=== PATIENT | female | born 1955 | race Two or more races ===

== ENCOUNTER 2016-06-30 12:44 | Emergency (ER) | payer BC, MEDICARE, OTHER ==
[~2016-06-30] VITALS: Ht 170.2 cm; Wt 77.1 kg
[~2016-06-30 12:44] MED LIST: ASPI-605 PO; CARI350T PO; FENO54TA PO; FLAX100032 PO; HYDR-3326 PO; LEVO25TA9 PO; LORA1TAB PO; OMEG500C3 PO; SIMV40TA5 PO
[2016-06-30 13:00] VITALS: BP 127/80
--- NOTE | 2016-06-30 13:56 | NUR ---
DR SANTANA AT BEDSIDE FOR EVAL.
[2016-06-30] MEDS ORDERED: DEXAMETHASONE SOD PHOSPHATE 10 MG/ML VIAL ONE (14:20)
[2016-06-30] MEDS ORDERED: DEXAMETHASONE SOD PHOSPHATE 10 MG/ML VIAL IM ONE (14:30)
== END 2016-06-30 14:32 | disposition home or self-care (01) ==
LOC: ER 12:51
DX: T78.40XA Allergy, unspecified, initial encounter (principal); E78.00 Pure hypercholesterolemia, unspecified; E03.9 Hypothyroidism, unspecified; Z93.50 Unspecified cystostomy status; Z79.82 Long term (current) use of aspirin
CPT/HCPCS: A4606; J1100; Z7610

== ENCOUNTER 2016-07-11 10:15 | Outpatient (CLI) | payer BC, MEDICARE, OTHER ==
[2016-07-11 10:59] LABS: APPEARANCE,URINE CLEAR (CLEAR); BASOPHILS % (AUTO) 0.5 % (0.0-2.0); BILIRUBIN,URINE NEGATIVE (NEGATIVE); BLOOD, URINE TRACE-INTA Ery/uL (NEGATIVE); COLOR,URINE YELLOW (YELLOW); EOSINOPHILS # (AUTO) 0.2 /CMM (0.0-0.7); EOSINOPHILS % (AUTO) 2.4 % (0.0-6.0); HEMATOCRIT 42 % (33-45); HEMOGLOBIN 14.4 g/dL (11.5-14.8); KETONES,URINE NEGATIVE (NEGATIVE); LEUKOCYTE ESTERASE ,URINE NEGATIVE (NEGATIVE); LYMPHOCYTES # (AUTO) 2.4 /CMM (0.8-4.8); LYMPHOCYTES % (AUTO) 37.2 % (20.0-44.0); MEAN CORPUSCULAR HEMOGLOBIN 29 PG (26.0-33.0); MEAN CORPUSCULAR HGB CONC 34 g/dl (31.0-36.0); MEAN CORPUSCULAR VOLUME 86 fL (82-100); MONOCYTES # (AUTO) 0.4 /CMM (0.1-1.30); MONOCYTES % (AUTO) 6.1 % (2.0-12.0); NEUTROPHILS # (AUTO) 3.5 /CMM (1.8-8.9); NEUTROPHILS % (AUTO) 53.8 % (43.0-81.0); NITRITE, URINE NEGATIVE (NEGATIVE); PLATELET COUNT (AUTO) 240 /CMM (150-450); PROTEIN,URINE NEGATIVE (NEGATIVE); RDW COEFFICIENT OF VARIATION 12.8 (11.5-15.0); UGLUCOSE NEGATIVE (NEGATIVE); UROBILINOGEN,URINE 0.2 EU/dL (0.2); WHITE BLOOD COUNT (AUTO) 6.5 K/uL (4.3-11.0)
[2016-07-11 11:09] LABS: ADD URINE CULTURE NO; BACTERIA,URINE None seen /HPF (None Seen); MUCUS,URINE Few /LPF (None Seen); SQUAMOUS EPITHELIAL CELL,UR Few /HPF (None Seen); WBC,URINE 0-2 /HPF (0-3)
[2016-07-11 11:17] LABS: ALBUMIN 4.5 g/dL (3.4-5.0); BILIRUBIN,TOTAL 0.5 mg/dL (0.2-1.0); CALCIUM, SERUM 9.3 mg/dL (8.5-10.1); CREATININE 0.8 mg/dL (0.6-1.3)
[2016-07-11 11:30] LABS: THYROID STIMULATING HORMONE 2.398 uIU/mL (0.358-3.74); URIC ACID 3.6 mg/dL (2.6-7.2)
[2016-07-12 08:03] LABS: CHOLESTEROL 192 mg/dL (<200); HDL CHOLESTEROL 37 mg/dL (40-60); LDL 112 mg/dL (0-99); TRIGLYCERIDES 231 mg/dL (30-150)
== END 2016-07-11 23:59 | disposition home or self-care (01) ==
LOC: LAB 10:15
PROVIDERS: ATTEND Legal Medicine
DX: Z00.00 Encounter for general adult medical examination without abnormal findings (principal)
CPT/HCPCS: 36415; 80053-TC; 80061-TC; 81000-TC; 82306; 82728-TC; 82746; 83540-TC; 84439-TC; 84443-TC; 84550-TC; 85025-TC

== ENCOUNTER 2016-08-23 23:49 | Emergency (ER) | payer BC, MEDICARE, OTHER ==
[~2016-08-23] VITALS: Ht 170.2 cm; Wt 79.4 kg
--- NOTE | 2016-08-24 00:04 | NUR ---
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 AOX4 resp even & unlabored, denies any sob, no throat tightening w/ nad noted. СВЕТЛАНА Nino at bedside for further eval.
[2016-08-24] MEDS ORDERED: DEXAMETHASONE SOD PHOSPHATE 10 MG/ML VIAL ONE (00:14)
--- NOTE | 2016-08-24 00:26 | NUR ---
medicated as ordered.
[2016-08-24] MEDS ORDERED: DEXAMETHASONE SOD PHOSPHATE 4 MG/ML VIAL IM ONE (00:30)
--- NOTE | 2016-08-24 00:52 | NUR ---
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 Prescription for benadryl provided, instructed not to drive while on medication. Patient discharged to home in stable condition. Written and verbal after care instructions given. Patient verbalizes understanding of instruction.
[2016-08-24 00:57] VITALS: BP 134/72
== END 2016-08-24 00:57 | disposition home or self-care (01) ==
LOC: ER 23:54
DX: T78.40XA Allergy, unspecified, initial encounter (principal); E78.00 Pure hypercholesterolemia, unspecified; E03.9 Hypothyroidism, unspecified; M54.9 Dorsalgia, unspecified; G89.29 Other chronic pain; Z93.50 Unspecified cystostomy status; Z79.82 Long term (current) use of aspirin
CPT/HCPCS: 96372; 99283; A4606; J1100; Z7610

== ENCOUNTER 2017-02-03 07:57 | Emergency (ER) | payer BC, MEDICARE ==
[~2017-02-03] VITALS: Ht 170.2 cm; Wt 78.0 kg
--- NOTE | 2017-02-03 08:00 | NUR ---
PATIENT PRESENTS TO ER C/O LEFT EYE REDNESS AND PAIN SINCE YESTERDAY. PATIENT IS A/OX 4. BREATHING EVEN AND UNLABORED. NO SOB. VITALS STABLE. NO DISCHARGE FROM EYE NOTED. SAFETY AND COMFORT MEASURES IN PLACE. AWAITING MD ORDERS.
[2017-02-03] MEDS ORDERED: FLUORESCEIN SODIUM OPHTH 1 EA STRIP ONE (08:10)
[2017-02-03] MEDS ORDERED: TETRACAINE HCL/PF 0.5% UD 2 ML BOTTLE ONE (08:11)
--- NOTE | 2017-02-03 08:15 | NUR ---
VISUAL ASSESSMENT COMPLETED, 20/70 LEFT EYE.
[2017-02-03 08:37] VITALS: BP 124/72
--- NOTE | 2017-02-03 08:38 | NUR ---
Patient discharged to home in stable condition. Written and verbal after care instructions given. Patient verbalizes understanding of instruction.
[2017-02-03] MEDS ORDERED: TETRACAINE HCL/PF 0.5% UD 2 ML BOTTLE OP ONE (09:00)
[2017-02-03] MEDS ORDERED: FLUORESCEIN SODIUM OPHTH 1 EA STRIP OP ONE (09:00)
== END 2017-02-03 08:38 | disposition home or self-care (01) ==
LOC: ER 08:00
DX: H57.8 Other specified disorders of eye and adnexa (principal); E78.00 Pure hypercholesterolemia, unspecified; E03.9 Hypothyroidism, unspecified; Z79.82 Long term (current) use of aspirin
CPT/HCPCS: A4606; Z7610

== ENCOUNTER 2017-03-20 07:59 | Outpatient (CLI) | payer BC, MEDICARE ==
[2017-03-20 09:20] LABS: BASOPHILS % (AUTO) 0.4 % (0.0-2.0); EOSINOPHILS # (AUTO) 0.2 /CMM (0.0-0.7); EOSINOPHILS % (AUTO) 2.6 % (0.0-6.0); HEMATOCRIT 38 % (33-45); HEMOGLOBIN 13.1 g/dL (11.5-14.8); LYMPHOCYTES # (AUTO) 2.9 /CMM (0.8-4.8); LYMPHOCYTES % (AUTO) 42.3 % (20.0-44.0); MEAN CORPUSCULAR HEMOGLOBIN 30 PG (26.0-33.0); MEAN CORPUSCULAR HGB CONC 35 g/dl (31.0-36.0); MEAN CORPUSCULAR VOLUME 86 fL (82-100); MONOCYTES # (AUTO) 0.5 /CMM (0.1-1.30); MONOCYTES % (AUTO) 6.7 % (2.0-12.0); NEUTROPHILS # (AUTO) 3.3 /CMM (1.8-8.9); PLATELET COUNT (AUTO) 266 /CMM (150-450); RDW COEFFICIENT OF VARIATION 12.7 (11.5-15.0); RED BLOOD CELL COUNT(AUTO) 4.39 MIL/uL (4.0-5.2); WHITE BLOOD COUNT (AUTO) 6.8 K/uL (4.3-11.0)
[2017-03-20 09:22] LABS: APPEARANCE,URINE CLEAR (CLEAR); BILIRUBIN,URINE NEGATIVE (NEGATIVE); BLOOD, URINE NEGATIVE Ery/uL (NEGATIVE); COLOR,URINE YELLOW (YELLOW); KETONES,URINE NEGATIVE (NEGATIVE); LEUKOCYTE ESTERASE ,URINE NEGATIVE (NEGATIVE); NITRITE, URINE NEGATIVE (NEGATIVE); PROTEIN,URINE NEGATIVE (NEGATIVE); UGLUCOSE NEGATIVE (NEGATIVE); UROBILINOGEN,URINE 0.2 EU/dL (0.2)
[2017-03-20 09:35] LABS: ALBUMIN 4.4 g/dL (3.4-5.0); BILIRUBIN,TOTAL 0.4 mg/dL (0.2-1.0); CALCIUM, SERUM 9.5 mg/dL (8.5-10.1); CREATININE 0.7 mg/dL (0.6-1.3); POTASSIUM 4.1 mmol/L (3.5-5.1)
[2017-03-20 09:47] LABS: THYROID STIMULATING HORMONE 2.754 uIU/mL (0.358-3.74); URIC ACID 2.9 mg/dL (2.6-7.2)
== END 2017-03-20 23:59 | disposition home or self-care (01) ==
LOC: LAB 07:59
PROVIDERS: ATTEND Legal Medicine
DX: Z00.01 Encounter for general adult medical examination with abnormal findings (principal); R79.89 Other specified abnormal findings of blood chemistry; E78.00 Pure hypercholesterolemia, unspecified; E55.9 Vitamin D deficiency, unspecified
CPT/HCPCS: 36415; 80053-TC; 80061-TC; 81000-TC; 82306; 82746; 83540-TC; 84439-TC; 84443-TC; 84550-TC; 85025-TC; 87086-TC

== ENCOUNTER 2017-06-06 19:05 | Inpatient (IN) | payer BC, MEDICARE ==
[~2017-06-06] VITALS: Ht 170.2 cm; Wt 78.0 kg
[~2017-06-06 19:05] MED LIST changes: -HYDR-3326 PO; +HYDR-3974 PO
[2017-06-06] MEDS ORDERED: ONDANSETRON 4 MG TAB.RAPDIS SL ONE (19:30)
[2017-06-06] MEDS ORDERED: KETOROLAC TROMETHAMINE INJ 30 MG/ML VIAL IM ONE (19:30)
[2017-06-06] MEDS ORDERED: oxyCODONE/APAP (5/325 MG) 1 UDTAB TABLET PO ONE (19:30)
[2017-06-06] MEDS ORDERED: oxyCODONE/APAP (5/325 MG) 1 UDTAB TABLET ONE (19:57)
[2017-06-06] MEDS ORDERED: KETOROLAC TROMETHAMINE INJ 30 MG/ML VIAL ONE (19:57)
[2017-06-06] MEDS ORDERED: ONDANSETRON 4 MG TAB.RAPDIS ONE (19:58)
--- NOTE | 2017-06-06 20:00 | NUR ---
PT A/OX4 BREATHING EFFORTLESSLY ON ROOM AIR, PT BIB FAMILY FROM HOME, PT STATES SHE HAS DISC PROBLEMS IN HER BACK AND SHE THINKS SHE IS HAVING A FLARE UP IN HER BACK PAIN TODAY, PT AMBULATORY WITH ASSISTANCE, PT ON MONITOR, FAMILY AT BEDSIDE WILL CONTINUE TO MONITOR.
--- NOTE | 2017-06-06 21:04 | NUR ---
CALLED NURSING PARTS PROCESSOR AND REQUESTED A MED SURG BED FOR THIS PT.
[2017-06-06 21:05] LABS: APPEARANCE,URINE Clear (CLEAR); BILIRUBIN,URINE Negative (NEGATIVE); BLOOD, URINE Trace-lysed Ery/uL (NEGATIVE); COLOR,URINE Yellow (YELLOW); KETONES,URINE Negative (NEGATIVE); LEUKOCYTE ESTERASE ,URINE Negative (NEGATIVE); NITRITE, URINE Negative (NEGATIVE); PROTEIN,URINE Negative (NEGATIVE); UGLUCOSE Negative (NEGATIVE); UROBILINOGEN,URINE 0.2 EU/dL (0.2)
[2017-06-06 21:14] LABS: BASOPHILS # (AUTO) 0.1 /CMM (0.0-0.2); BASOPHILS % (AUTO) 0.8 % (0.0-2.0); EOSINOPHILS % (AUTO) 2.7 % (0.0-6.0); HEMATOCRIT 39 % (33-45); HEMOGLOBIN 13.6 g/dL (11.5-14.8); LYMPHOCYTES # (AUTO) 3.5 /CMM (0.8-4.8); MEAN CORPUSCULAR HGB CONC 35 g/dl (31.0-36.0); MEAN CORPUSCULAR VOLUME 85 fL (82-100); MONOCYTES # (AUTO) 0.5 /CMM (0.1-1.30); MONOCYTES % (AUTO) 6.3 % (2.0-12.0); NEUTROPHILS # (AUTO) 3.8 /CMM (1.8-8.9); NEUTROPHILS % (AUTO) 47.2 % (43.0-81.0); PLATELET COUNT (AUTO) 235 /CMM (150-450); RDW COEFFICIENT OF VARIATION 12.2 (11.5-15.0); RED BLOOD CELL COUNT(AUTO) 4.55 MIL/uL (4.0-5.2); WHITE BLOOD COUNT (AUTO) 8.1 K/uL (4.3-11.0)
--- NOTE | 2017-06-06 21:15 | NUR ---
CALLED DR ECHEVARRIA'S OFFICE AND A CALL BACK MESSAGE WAS LEFT.
[2017-06-06 21:21] LABS: BACTERIA,URINE Few /HPF (None Seen); RBC,URINE 2-3/HPF /HPF (0-2); SQUAMOUS EPITHELIAL CELL,UR Few /HPF (None Seen); URINE AMORPHOUS URATE Few /HPF (None Seen)
[2017-06-06 21:24] LABS: CALCIUM, SERUM 9.4 mg/dL (8.5-10.1); CREATININE 0.7 mg/dL (0.6-1.3); POTASSIUM 4.1 mmol/L (3.5-5.1)
--- NOTE | 2017-06-06 21:26 | NUR ---
PT IS ASSIGNED TO MED SURG RM#:[id number], PT IS DIAGNOSED WITH INTRACTABLE BACK PAIN, AND DR ECHEVARRIA IS THE ACCEPTING MD.
[2017-06-06 21:30] LABS: ALBUMIN 4.4 g/dL (3.4-5.0); BILIRUBIN,TOTAL 0.3 mg/dL (0.2-1.0); TOTAL PROTEIN, SERUM 7.9 g/dL (6.4-8.2)
[2017-06-06] MEDS ORDERED: FENTANYL PF 100MCG/2ML AMPUL ONE (21:59)
[2017-06-06] MEDS ORDERED: FENTANYL PF 100MCG/2ML AMPUL IV ONE (22:00)
[2017-06-06 22:15] VITALS: BP 122/76
--- NOTE | 2017-06-06 22:15 | NUR ---
MS RN NOTES RECEIVED PT FROM ER, TRANSFERRED TO BED SAFELY. DILLAN FROM IT AT BEDSIDE. PT IN STABLE CONDITION. PT IS A/O X 4. VERBALLY RESPONSIVE. NO DISTRESS, NO SOB NOTED AT THIS TIME. IV SITE ON RAC G # 20 INTACT AND PATENT, NO S/S OF INFILTRATION NOTED. FULL BODY CHECK DONE. PT PAIN LEVEL 3/10 AT THIS TIME, OFFERED PAIN MEDICINE BUT PT DOESN'T WANT IT AT THIS TIME. ALL NEEDS ATTENDED ANE MET. KEPT COMFORTABLE. SAFETY PRECAUTIONS OBSERVED. CALL LIGHT WITHIN REACH. WILL CONT TO MONITOR.
[2017-06-06] MEDS ORDERED: MORPHINE SULFATE INJ 2 MG/ML DISP.SYRIN IV PRN (22:30)
[2017-06-06] MEDS ORDERED: MORPHINE SULFATE INJ 4 MG/ML DISP.SYRIN IV PRN (22:30)
[2017-06-06] MEDS ORDERED: ONDANSETRON HCL/PF 4 MG/2 ML VIAL IV PRN (22:30)
[2017-06-06] MEDS ORDERED: CYCLOBENZAPRINE 10 MG TABLET PO PRN (22:30)
--- NOTE | 2017-06-07 06:27 | NUR ---
MS RN NOTES PT IN BED, RESTING COMFORTABLY AT THSI TIME, AROUSES EASILY. PT IS A/O X 4. VERBALLY RESPONSIVE. NO DISTRESS, NO SOB NOTED AT THIS TIME. NO C/O PAIN OR DISCOMFORT AT THIS TIME. IV SITE ON RAC G # 20 INTACT AND PATENT, NO S/S OF INFILTRATION NOTED. ALL NEEDS ATTENDED AND MET. KEPT COMFORTABLE. PT IS AMBULATORY. SAFETY PRECAUTIONS OBSERVED. CALL LIGHT WITHIN REACH. WILL ENDORSE TO NEXT SHIFT FOR JESSICA.
[2017-06-07 08:00] VITALS: BP 111/61
--- NOTE | 2017-06-07 08:00 | NUR ---
MS RN RECEIVED ON BED, AWAKE,ALERT,ORIENTED X4,PATIENT CAME W/ LOWER BACK PAIN, COMPLAINING OF PAIN A THIS TIME, EVERYTIME SHE OVE, WILL MONITOR PATIENT.
--- NOTE | 2017-06-07 09:00 | NUR ---
MS STOCK BREAKFAST SERVED,DUE MEDS GIVEN,TOLERATED WELL.
[2017-06-07] MEDS: PANTOPRAZOLE 40 MG TABLET.DR PO SCH (09:12)
[2017-06-07] MEDS ORDERED: FENTANYL PF 100MCG/2ML AMPUL IV PRN ×2 (09:30)
[2017-06-07] MEDS ORDERED: LORAZEPAM INJ 2 MG/ML VIAL IV ONE (10:00)
--- NOTE | 2017-06-07 10:00 | NUR ---
MS RN WAS SEEN BY DR. ECHEVARRIA W/ ORDERS MADE AND CARRIED OUT.
[2017-06-07] MEDS ORDERED: HYDROCODONE/APAP 5/325MG 1 EACH TABLET PO PRN (10:30)
--- NOTE | 2017-06-07 11:33 | NUR ---
MS RN WENT DOWN FOR MRI.
--- NOTE | 2017-06-07 12:20 | NUR ---
MS RN PATIENT CAME BACK, STILL SLEEPING, NO DISTRESS NOTED. WILL MONITOR PATIENT.
[2017-06-07 16:13] VITALS: BP 99/58
--- NOTE | 2017-06-07 17:58 | NUR ---
MS RN ON BED,NO CHANGE OF CONDITION, WILL MONITOR PATIENT'S CONDITION.
[2017-06-07] MEDS ORDERED: ASPIRIN EC 81 MG TABLET.DR PO SCH (18:00)
--- NOTE | 2017-06-07 18:36 | NUR ---
MS RN LEFT MESSAGE TO FOR LIDOCAINE PATCH ORDER AND PATIENT WANTS TO KNOW IF HE CAN COME HERE FOR MRI RESULT.
--- NOTE | 2017-06-07 19:30 | NUR ---
MS RN OPENING NOTES: PATIENT IN BED, AOX4, ON ROOM AIR, BREATHING EVEN AND UNLABORED. APPEARS CALM, TALKING WITH FAMILY IN ROOM, HOWEVER, SHE COMPLAINS OF 7-8/10 PAIN OVER HER LOWER BACK AREA WHENEVER SHE MOVES. PIV OVER RAC G 20 INTACT AND PATENT TO FLUSH. PROVIDED FOR COMFORT AND SAFETY. BED IN LOWEST AND LOCKED POSITION, SIDERAILS UP X3, CALL LIGHT WITHIN REACH. WILL CONT TO MONITOR.
[2017-06-07 20:00] VITALS: BP 98/65
[2017-06-07] MEDS: CARISOPRODOL 350 MG TABLET PO PRN (20:54)
--- NOTE | 2017-06-07 21:00 | NUR ---
RN NOTES: PATIENT COMPLAINING OF 7-8/10 LOWER BACK PAIN WITH STIFFNESS, WORSE WHEN MOVING. ADMINISTERED SOMA 350 MG PO. APPLIED WARM PACK OVER LOWER BACK WELL. WILL CONT TO MONITOR.
--- NOTE | 2017-06-07 22:02 | NUR ---
RN NOTES: PATIENT STILL WITH LOWER BACK PAIN, AND IS ASKING FOR LIDOCAINE PATCH. PAGED DR ECHEAVRRIA, AWAITING CALL BACK.
--- NOTE | 2017-06-08 03:30 | NUR ---
RN NOTES: PATIENT AWOKE WHEN ROUNDS WERE BEING DONE, PATIENT STATES THAT THE SOMA 350 MG PO SIGNIFICANTLY HELPED HER LOW BACK PAIN AND ALLOWED HER TO SLEEP. ASKED IF SHE IS HAVING ANY PAIN AND OFFERED PAIN MEDS, DENIES MODERATE TO SEVERE PAIN NOW. PATIENT WENT BACK TO SLEEP.
--- NOTE | 2017-06-08 07:09 | NUR ---
MS RN CLOSING NOTES: PATIENT IN BED, AOX4, ON ROOM AIR, BREATHING EVEN AND UNLABORED. PATIENT STILL COMPLAINING OF MODERATE LOWER BACK PAIN, BUT CLAIMED THAT PRN SOMA WAS ABLE TO PROVIDE SOME PAIN RELIEF. PIV OVER RAC G 20 INTACT AND PATENT TO FLUSH. PROVIDED FOR COMFORT AND SAFETY. BED IN LOWEST AND LOCKED POSITION, SIDERAILS UP X 3, CALL LIGHT WITHIN REACH. WILL ENDORSE TO AM RN FOR JESSICA.
[2017-06-08] MEDS: PANTOPRAZOLE 40 MG TABLET.DR PO SCH (07:17)
[2017-06-08] MEDS ORDERED: LEVOTHYROXINE SODIUM 25 MCG TABLET PO SCH (07:30)
[2017-06-08 08:00] VITALS: BP 104/66
--- NOTE | 2017-06-08 08:00 | NUR ---
MS RN OPENING NOTES: PATIENT IN BED, AOX4, ON ROOM AIR, BREATHING EVEN AND UNLABORED. APPEARS CALM, TALKING WITH FAMILY IN ROOM, HOWEVER, SHE COMPLAINS OF 6/10 PAIN OVER HER LOWER BACK AREA WHENEVER SHE MOVES.SOMA GIVEN. PIV OVER RAC G 20 INTACT AND PATENT TO FLUSH. PROVIDED FOR COMFORT AND SAFETY. BED IN LOWEST AND LOCKED POSITION, SIDERAILS UP X3, CALL LIGHT WITHIN REACH. WILL CONT TO MONITOR.
[2017-06-08] MEDS: CARISOPRODOL 350 MG TABLET PO PRN (08:24)
[2017-06-08] MEDS ORDERED: Medication Not On Formulary EA (Omega-3 Fatty Acids (Fish Oil) 500 MG) PO SCH (09:00)
[2017-06-08] MEDS ORDERED: SIMVASTATIN 40 MG TABLET PO SCH (09:00)
[2017-06-08] MEDS ORDERED: SENNOSIDES 8.6 MG TABLET PO PRN (09:00)
--- NOTE | 2017-06-08 12:50 | NUR ---
SEEN BY DR ELLIOTT FOR PAIN MGT AND PRESCRIPTION.INSTRUCTED TO GO TO [facility] FOR P.T. [place].FOLLOW UP WITH DR ELLIOTT IN 3 WEEKS.
--- NOTE | 2017-06-08 15:24 | NUR ---
DISCHARGE INSTRUCTIONS,MED RECONCILIATION,PRESCRIPTIONS,MED AND HEALTH TEACHING GIVEN TO THE PT.IV H/L REMOVED TO RT AC WITHOUT BLEEDING NOTED.AWAITING FOR TO PICK HER UP.PT DENIES ANY PAIN OR DISTRESS.
[2017-06-08 16:00] VITALS: BP 147/73
--- NOTE | 2017-06-08 17:09 | NUR ---
DISCHARGED HOME WITH STABLE V/S DENYING ANY PAIN OR DISTRESS ACCOMPANIED BY HER ,DILLAN.
[2017-06-09] MEDS ORDERED: Fenofibrate 48 MG TABLET PO SCH (09:00)
== END 2017-06-08 16:41 | disposition home or self-care (01) | DRG 552 ==
LOC: ER 19:06 → MED 21:34
PROVIDERS: ADMIT Legal Medicine; ATTEND Legal Medicine
DX: M51.16 Intervertebral disc disorders with radiculopathy, lumbar region (principal); E03.9 Hypothyroidism, unspecified; M47.26 Other spondylosis with radiculopathy, lumbar region; E78.00 Pure hypercholesterolemia, unspecified; K21.9 Gastro-esophageal reflux disease without esophagitis; F41.9 Anxiety disorder, unspecified; M51.26 Other intervertebral disc displacement, lumbar region; Z79.82 Long term (current) use of aspirin; Z79.899 Other long term (current) drug therapy; M53.3 Sacrococcygeal disorders, not elsewhere classified; G89.4 Chronic pain syndrome; M12.9 Arthropathy, unspecified
CPT/HCPCS: 36415; 71045-TC; 72148-TC; 80053-TC; 81000-TC; 85025-TC; 87081-TC; A4606; J1885; J2060; J3010; Q0162; Z7610

== ENCOUNTER 2017-06-26 14:49 | Outpatient (CLI) | payer BC, MEDICARE ==
[~2017-06-26 14:49] MED LIST changes: -HYDR-3974 PO; -LORA1TAB PO
== END 2017-06-26 23:59 | disposition home or self-care (01) ==
LOC: MSC 14:49
PROVIDERS: ATTEND Anesthesiology
DX: M51.36 Other intervertebral disc degeneration, lumbar region (principal); M47.817 Spondylosis without myelopathy or radiculopathy, lumbosacral region; M25.9 Joint disorder, unspecified

== ENCOUNTER 2017-07-31 10:54 | Outpatient (CLI) | payer BC, MEDICARE | END 2017-07-31 23:59 | disposition home or self-care (01) | LOC: RAD 10:54 | PROVIDERS: ATTEND Anesthesiology | DX: M17.0 Bilateral primary osteoarthritis of knee (principal) | CPT/HCPCS: 73560-TC ==

== ENCOUNTER 2017-07-31 11:00 | Outpatient (CLI) | payer BC, MEDICARE | END 2017-07-31 23:59 | disposition home or self-care (01) | LOC: MSC 11:00 | PROVIDERS: ATTEND Anesthesiology | DX: M51.36 Other intervertebral disc degeneration, lumbar region (principal); M47.817 Spondylosis without myelopathy or radiculopathy, lumbosacral region; M25.9 Joint disorder, unspecified; M25.561 Pain in right knee; M25.562 Pain in left knee ==

== ENCOUNTER 2017-10-02 08:24 | Emergency (ER) | payer BC, MEDICARE ==
[~2017-10-02] VITALS: Ht 167.6 cm; Wt 68.0 kg
[2017-10-02 08:38] VITALS: BP 105/87
[2017-10-02] MEDS ORDERED: KETOROLAC TROMETHAMINE INJ 60 MG/2 ML VIAL IM ONE ×2 (09:00→09:30)
== END 2017-10-02 10:30 | disposition home or self-care (01) ==
LOC: ER 08:26
DX: M17.11 Unilateral primary osteoarthritis, right knee (principal); G89.29 Other chronic pain; M54.9 Dorsalgia, unspecified; F41.9 Anxiety disorder, unspecified; E78.00 Pure hypercholesterolemia, unspecified; E03.9 Hypothyroidism, unspecified; Z91.012 Allergy to eggs; Z91.010 Allergy to peanuts; Z88.8 Allergy status to other drugs, medicaments and biological substances; Z79.82 Long term (current) use of aspirin
CPT/HCPCS: 29505; 96372; 99283; A4606; J1885; Z7610

== ENCOUNTER 2017-10-10 07:56 | Outpatient (CLI) | payer BC, MEDICARE ==
[~2017-10-10 07:56] MED LIST changes: +KETOROLAC TROMETHAMINE INJ 30 MG/ML VIAL ONE
== END 2017-10-10 23:59 | disposition home or self-care (01) ==
LOC: MRI 07:56
PROVIDERS: ATTEND Anesthesiology
DX: S83.242A Other tear of medial meniscus, current injury, left knee, initial encounter (principal); M17.0 Bilateral primary osteoarthritis of knee; M25.461 Effusion, right knee; M71.21 Synovial cyst of popliteal space [Baker], right knee; X58.XXXA Exposure to other specified factors, initial encounter; Y93.89 Activity, other specified; Y92.89 Other specified places as the place of occurrence of the external cause; Y99.8 Other external cause status
CPT/HCPCS: 73721 ×2; J1885

== ENCOUNTER 2017-10-11 00:07 | Emergency (ER) | payer MEDICARE, BC ==
[~2017-10-11] VITALS: Ht 170.2 cm; Wt 80.7 kg
[~2017-10-11 00:07] MED LIST changes: -KETOROLAC TROMETHAMINE INJ 30 MG/ML VIAL ONE
[2017-10-11 00:46] VITALS: BP 121/71
[2017-10-11] MEDS ORDERED: DEXAMETHASONE SOD PHOSPHATE 10 MG/ML VIAL ONE (01:10)
[2017-10-11] MEDS ORDERED: HYDROMORPHONE INJ 2 MG/ML DISP.SYRIN ONE (01:10)
[2017-10-11] MEDS ORDERED: DEXAMETHASONE SOD PHOSPHATE 4 MG/ML VIAL IM ONE (01:30)
[2017-10-11] MEDS ORDERED: HYDROMORPHONE 1 MG/1 ML DISP.SYRIN IM ONE (01:30)
== END 2017-10-11 01:18 | disposition home or self-care (01) ==
LOC: ER 00:09
DX: M25.561 Pain in right knee (principal); G89.4 Chronic pain syndrome; F41.9 Anxiety disorder, unspecified; E78.00 Pure hypercholesterolemia, unspecified; E03.9 Hypothyroidism, unspecified; Z91.012 Allergy to eggs; Z91.010 Allergy to peanuts; Z88.2 Allergy status to sulfonamides; Z79.82 Long term (current) use of aspirin
CPT/HCPCS: 96372 ×2; 99284; A4606; J1100; J1170; Z7610

== ENCOUNTER 2017-11-20 07:50 | Outpatient (CLI) | payer MEDICARE, BC ==
[2017-11-20 09:47] LABS: APPEARANCE,URINE SL CLOUDY (CLEAR); BILIRUBIN,URINE NEGATIVE (NEGATIVE); BLOOD, URINE TRACE-INTA Ery/uL (NEGATIVE); COLOR,URINE YELLOW (YELLOW); KETONES,URINE NEGATIVE (NEGATIVE); LEUKOCYTE ESTERASE ,URINE NEGATIVE (NEGATIVE); NITRITE, URINE NEGATIVE (NEGATIVE); PROTEIN,URINE NEGATIVE (NEGATIVE); UGLUCOSE NEGATIVE (NEGATIVE); UROBILINOGEN,URINE 0.2 EU/dL (0.2)
[2017-11-20 10:00] LABS: BASOPHILS % (AUTO) 0.1 % (0.0-2.0); BILIRUBIN,TOTAL 0.6 mg/dL (0.2-1.0); CALCIUM, SERUM 8.9 mg/dL (8.5-10.1); CREATININE 0.7 mg/dL (0.6-1.3); EOSINOPHILS % (AUTO) 3.4 % (0.0-6.0); HEMATOCRIT 40 % (33-45); HEMOGLOBIN 13.7 g/dL (11.5-14.8); LYMPHOCYTES # (AUTO) 2.2 /CMM (0.8-4.8); LYMPHOCYTES % (AUTO) 41.3 % (20.0-44.0); MEAN CORPUSCULAR HGB CONC 34 g/dl (31.0-36.0); MEAN CORPUSCULAR VOLUME 87 fL (82-100); MONOCYTES # (AUTO) 0.3 /CMM (0.1-1.30); MONOCYTES % (AUTO) 6.3 % (2.0-12.0); NEUTROPHILS # (AUTO) 2.7 /CMM (1.8-8.9); NEUTROPHILS % (AUTO) 48.9 % (43.0-81.0); PLATELET COUNT (AUTO) 243 /CMM (150-450); POTASSIUM 3.8 mmol/L (3.5-5.1); RDW COEFFICIENT OF VARIATION 12.4 (11.5-15.0); RED BLOOD CELL COUNT(AUTO) 4.65 MIL/uL (4.0-5.2); TOTAL PROTEIN, SERUM 7.5 g/dL (6.4-8.2); WHITE BLOOD COUNT (AUTO) 5.4 K/uL (4.3-11.0)
[2017-11-20 10:14] LABS: C-REACTIVE PROTEIN 0.4 mg/dL (0.0-0.9); THYROID STIMULATING HORMONE 2.747 uIU/mL (0.358-3.74)
[2017-11-20 10:30] LABS: BACTERIA,URINE Moderate /HPF (None Seen); RBC,URINE 0-2 /HPF (0-2); SQUAMOUS EPITHELIAL CELL,UR Moderate /HPF (None Seen); WBC,URINE 0-2 /HPF (0-3)
[2017-11-21 08:08] LABS: T3, FREE 3.2 pg/mL (2.0-4.4)
[2017-11-22 11:10] LABS: CALCITRIOL VIT D,1, 25 DIHYDRO 74.3 pg/mL (19.9-79.3)
[2017-11-22 20:09] LABS: CCP IgG/IgA AB 10 units (0-19)
== END 2017-11-20 23:59 | disposition home or self-care (01) ==
LOC: LAB 07:50
PROVIDERS: ATTEND Legal Medicine
DX: Z00.01 Encounter for general adult medical examination with abnormal findings (principal); F41.9 Anxiety disorder, unspecified; E03.9 Hypothyroidism, unspecified; M19.90 Unspecified osteoarthritis, unspecified site
CPT/HCPCS: 36415; 80053-TC; 80061-TC; 81000-TC; 82652; 82728-TC; 83540-TC; 84439-TC; 84443-TC; 84481; 85025-TC; 85652-TC; 86140-TC; 86200; 86431-TC; 87086-TC

== ENCOUNTER 2018-01-08 05:11 | Emergency (ER) | payer BC, MEDICARE ==
[~2018-01-08] VITALS: Ht 170.2 cm; Wt 80.7 kg
--- NOTE | 2018-01-08 05:30 | NUR ---
PT TO ER C.O NOSEBLEED THIS AM. PT ARRIVED WITH BILAT NOSTRILS PACKED WITH TISSUE. NO IMMEDIATE SIGNS OF DISTRESS NOTED. PT VITAL SIGNS WITHIN NORMAL LIMITS. PT AMBULATORY WITH STEADY GAIT TO ROOM. DR GRIFFIN AT BEDSIDE FOR EXAM.
[2018-01-08] MEDS ORDERED: OXYMETAZOLINE HCL NASAL SPRAY 30 ML BOTTLE NS ONE ×2 (05:40→06:00)
[2018-01-08] MEDS ORDERED: BACITRACIN ZINC OINT PACKET 1 EA PACKET TP ONE ×2 (05:40→06:00)
--- NOTE | 2018-01-08 05:45 | NUR ---
DR GRIFFIN AT BEDSIDE FOR RAPID RHINO PACKING INSERTION.
[2018-01-08] MEDS ORDERED: CEPHALEXIN MONOHYDRATE 500 MG CAPSULE PO ONE ×2 (06:30→06:34)
--- NOTE | 2018-01-08 06:45 | NUR ---
PT OK TO DISCHARGE PER DR CABRAL. Patient discharged to home in stable condition. Written and verbal after care instructions given. Patient verbalizes understanding of instruction.Patient is awake and alert to self, day, and place. PT ambulatory with a steady gait
[2018-01-08 07:19] VITALS: BP 125/92
== END 2018-01-08 07:19 | disposition home or self-care (01) ==
LOC: ER 05:14
DX: R04.0 Epistaxis (principal); G89.29 Other chronic pain; M54.9 Dorsalgia, unspecified; F41.9 Anxiety disorder, unspecified; E78.00 Pure hypercholesterolemia, unspecified; E03.9 Hypothyroidism, unspecified; Z91.012 Allergy to eggs; Z91.018 Allergy to other foods; Z79.82 Long term (current) use of aspirin